=== PATIENT | female | born 1985 | race Caucasian/White ===

== ENCOUNTER 2017-03-31 17:00 | Inpatient (IN) | payer MEDICAID ==
[~2017-03-31] VITALS: Ht 162.6 cm; Wt 92.7 kg
[2017-03-31 18:14] VITALS: Ht 162.6 cm; Wt 92.7 kg
[2017-03-31 18:18] LABS: BASOPHILS % 0.4 % (0.0-2.0); EOSINOPHILS # 0.2 10^3/ul (0.0-0.5); EOSINOPHILS % 2.3 % (0.0-7.0); HEMATOCRIT 38.7 % (37.0-47.0); HEMOGLOBIN 13.2 g/dl (12.0-16.0); LYMPHOCYTES # 1.8 10^3/ul (0.8-2.9); LYMPHOCYTES % 21.4 % (15.0-51.0); MEAN CORPUSCULAR HEMOGLOBIN 31.7 pg (29.0-33.0); MEAN CORPUSCULAR HGB CONC 34.1 g/dl (32.0-37.0); MEAN PLATELET VOLUME 10.4 fl (7.4-10.4); MONOCYTE # 0.9 10^3/ul (0.3-0.9); MONOCYTES % 10.4 % (0.0-11.0); NEUTROPHILS % 64.2 % (39.0-77.0); PLATELET COUNT 342 10^3/UL (140-415); RED BLOOD COUNT 4.16 10^6/ul (4.20-5.40); RED CELL DISTRIBUTION WIDTH 13.4 % (11.5-14.5); WHITE BLOOD COUNT 8.4 10^3/ul (4.8-10.8)
[2017-03-31] MEDS: LACTATED RINGER'S 1,000 ML IV SCH (18:24)
[2017-03-31] MEDS ORDERED: METHYLERGONOVINE 0.2 MG INJ IM PRN (18:30)
[2017-03-31] MEDS ORDERED: MISOPROSTOL 200 MCG TAB PR PRN (18:30)
[2017-03-31] MEDS ORDERED: IBUPROFEN 600 MG TAB PO PRN (18:30)
[2017-03-31] MEDS ORDERED: LACTATED RINGER'S 1,000 ML IV PRN (18:30)
[2017-03-31] MEDS ORDERED: CARBOPROST 250 MCG INJ IM PRN (18:30)
[2017-03-31] MEDS ORDERED: OXYTOCIN 30 UNITS/LR 500 ML IV SCH ×2 (18:30)
[2017-03-31] MEDS ORDERED: MINERAL OIL LIGHT 10 ML VIAL TOP ONE (18:30)
[2017-03-31] MEDS ORDERED: OXYTOCIN 30 UNITS/LR 500 ML IV PRN (18:30)
[2017-03-31] MEDS ORDERED: LIDOCAINE 1% (MPF) 30 ML INJ INJ PRN (18:30)
[2017-03-31] MEDS ORDERED: BUTORPHANOL 2 MG INJ IV PRN (18:30)
[2017-03-31 18:42] LABS: INR 0.89; PARTIAL THROMBOPLASTIN TIME 25.5 Sec (25.0-35.0); PT RATIO 0.9
[2017-03-31 19:19] VITALS: BP 112/67; PULSE 68; RESP 18
[2017-04-01] MEDS ORDERED: MINERAL OIL LIGHT 10 ML VIAL TOP ONE
[2017-04-01] MEDS: LACTATED RINGER'S 1,000 ML IV SCH ×3 (00:20→07:20)
[2017-04-01] MEDS ORDERED: OXYTOCIN 30 UNITS/LR 500 ML IV SCH (03:00)
[2017-04-01] MEDS ORDERED: FENTAnyl 2MCG/ML-ROPIV 0.2% 100 ML ONE (08:57)
[2017-04-01] MEDS ORDERED: NALOXONE (0.4 MG/ML) INJ IV PRN (10:00)
[2017-04-01] MEDS ORDERED: FENTAnyl 2MCG/ML-ROPIV 0.2% 100 ML BAG EPI SCH (10:00)
[2017-04-01] MEDS ORDERED: ONDANSETRON 4 MG INJ IV PRN (10:00)
[2017-04-01] MEDS ORDERED: DIPHENHYDRAMINE 50 MG INJ IV PRN (10:00)
--- NOTE | 2017-04-01 14:23 | HP ---
Date/Time of Note Date/Time of Note DATE: 04/01/17 TIME: 14:22 OB - History Hx of Present Free Text/Dictation admitted for induction due to post dates Care: Good Care Ultrasounds: Normal mid trimester US Obstetrical Complications: None Medical Complications: None Past Family/Social History * Past Medical, Surgical, Family and Obstetric Histories reviewed from chart. OB Admission Exam Vital Signs Vital Signs Vital Signs Date Time Temp Pulse Resp B/P Pulse Ox O2 Delivery O2 Flow Rate FiO2 03/31/17 19:19 98.1 68 18 112/67 Room Air Physical Exam HEENT: WNL Heart: Rhythm Normal Lungs: Clear, Equal Abdomen: WNL Extremities: Normal Reflexes: Normal Cervical Dilatation: 10cm Effacement: 100% Station: +3 Membranes: Ruptured Amniotic Fluid: Clear Heart Rate: 130's Accelerations: Accelerations Present Decelerations: No Decelerations Varibility: Moderate Last 72 hours Lab Results CBC & BMP 03/31/17 18:00 OB Assessment/Plan Reason for admission: induction of labor Plan: Induction KVNG FULLER MD Apr 01, 2017 14:23
--- NOTE | 2017-04-01 14:24 | LDN ---
Date/Time of Note Date/Time of Note DATE: 04/01/17 TIME: 14:23 Delivery Summary term preg NSD Placenta Delivered: Spontaneously Meconium: none Anesthesia type: Epidural Estimated blood loss: 350 Sponge & Needle done & correct: Yes All needle counts correct: Yes Any foreign bodies felt in the: No Problems: KVNG FULLER MD Apr 01, 2017 14:24
[2017-04-01 15:00] VITALS: BP 116/61; PULSE 62; RESP 18
[2017-04-01] MEDS ORDERED: LACTATED RINGER'S 1,000 ML IV* SCH (15:01)
[2017-04-01] MEDS: WITCH HAZEL/GLYCERIN PAD PR PRN (15:28)
[2017-04-01] MEDS: BENZOCAINE 20% 56 ML SPRAY TOP PRN (15:28)
[2017-04-01] MEDS: LANOLIN 7 GM TUBE TOP PRN (15:28)
[2017-04-01] MEDS: HYDROCODONE/APAP (5/325) TAB PO PRN (15:29)
[2017-04-01 15:30] VITALS: BP 112/68; PULSE 65; RESP 18
[2017-04-01] MEDS ORDERED: METHYLERGONOVINE 0.2 MG INJ IM PRN (15:30)
[2017-04-01] MEDS ORDERED: ZOLPIDEM 5 MG TAB PO PRN (15:30)
[2017-04-01] MEDS ORDERED: MISOPROSTOL 200 MCG TAB PR PRN (15:30)
[2017-04-01] MEDS ORDERED: MAGNESIUM HYDROXIDE 30ML CUP PO PRN (15:30)
[2017-04-01] MEDS ORDERED: OXYTOCIN 30 UNITS/LR 500 ML IV PRN (15:30)
[2017-04-01] MEDS ORDERED: CARBOPROST 250 MCG INJ IM PRN (15:30)
[2017-04-01] MEDS ORDERED: ACETAMINOPHEN 325 MG TAB PO PRN (15:30)
[2017-04-01] MEDS ORDERED: DIPHENHYDRAMINE 25 MG CAP PO PRN (15:30)
[2017-04-01] MEDS: IBUPROFEN 800 MG TAB PO SCH ×2 (17:52→23:05)
[2017-04-01] MEDS: OXYTOCIN 30 UNITS/LR 500 ML IV SCH (17:54)
[2017-04-01 19:30] VITALS: BP 106/65; PULSE 86; RESP 20
[2017-04-02 04:00] VITALS: BP 102/59; PULSE 78; RESP 18
[2017-04-02] MEDS: IBUPROFEN 800 MG TAB PO SCH ×4 (05:25→23:25)
[2017-04-02] MEDS: OXYTOCIN 30 UNITS/LR 500 ML IV SCH (07:46)
[2017-04-02 08:00] VITALS: BP 110/58; PULSE 80; RESP 18
[2017-04-02 09:56] LABS: BASOPHILS % 0.5 % (0.0-2.0); EOSINOPHILS # 0.3 10^3/ul (0.0-0.5); EOSINOPHILS % 3.1 % (0.0-7.0); HEMATOCRIT 40.4 % (37.0-47.0); HEMOGLOBIN 13.3 g/dl (12.0-16.0); LYMPHOCYTES # 2.4 10^3/ul (0.8-2.9); LYMPHOCYTES % 28.2 % (15.0-51.0); MEAN CORPUSCULAR HEMOGLOBIN 31.1 pg (29.0-33.0); MEAN CORPUSCULAR HGB CONC 32.9 g/dl (32.0-37.0); MEAN CORPUSCULAR VOLUME 94.4 fl (82.0-101.0); MEAN PLATELET VOLUME 10.2 fl (7.4-10.4); MONOCYTE # 0.8 10^3/ul (0.3-0.9); PLATELET COUNT 307 10^3/UL (140-415); RED BLOOD COUNT 4.28 10^6/ul (4.20-5.40); RED CELL DISTRIBUTION WIDTH 13.6 % (11.5-14.5); WHITE BLOOD COUNT 8.7 10^3/ul (4.8-10.8)
[2017-04-02] MEDS: HYDROCODONE/APAP (5/325) TAB PO PRN (10:59)
[2017-04-02 12:10] VITALS: BP 115/56; PULSE 82; RESP 18
[2017-04-02 16:00] VITALS: BP 102/72; PULSE 81; RESP 18
[2017-04-02 20:15] VITALS: BP 116/76; PULSE 86; RESP 17
[2017-04-02] MEDS: SENNA/DOCUSATE NA (8.6MG/50MG) TAB PO PRN (21:14)
[2017-04-02] MEDS: LANOLIN 7 GM TUBE TOP PRN (21:15)
--- NOTE | 2017-04-02 22:25 | PN ---
Date/Time of Note Date/Time of Note DATE: 04/02/17 TIME: 22:20 OB Subjective Subjective Subjective Vaginal bleeding in the amount of menses. Denies any depressive symptoms. Reports have pelvic pain with walking. OB Objective Objective Objective GA: A&O, NAD x 4. Beast: No evidence of mastitis or fissure Abdomen: soft, non tender, no fundal tenderness. Fundus palpable at the level of umbilicus Extremities: No calf tenderness, no click, no edema. Hematology - 72 Hrs Test 03/31/17 18:00 04/02/17 09:30 White Blood Count 8.410^3/ul (4.8-10.8) 8.710^3/ul (4.8-10.8) Red Blood Count 4.1610^6/ul (4.20-5.40) L 4.2810^6/ul (4.20-5.40) Hemoglobin 13.2g/dl (12.0-16.0) 13.3g/dl (12.0-16.0) Hematocrit 38.7% (37.0-47.0) 40.4% (37.0-47.0) Mean Corpuscular Volume 93.0fl (82.0-101.0) 94.4fl (82.0-101.0) Mean Corpuscular Hemoglobin 31.7pg (29.0-33.0) 31.1pg (29.0-33.0) Mean Corpuscular Hemoglobin Concent 34.1g/dl (32.0-37.0) 32.9g/dl (32.0-37.0) Red Cell Distribution Width 13.4% (11.5-14.5) 13.6% (11.5-14.5) Platelet Count 50245^3/UL (140-415) 30893^3/UL (140-415) Mean Platelet Volume 10.4fl (7.4-10.4) 10.2fl (7.4-10.4) Neutrophils % 64.2% (39.0-77.0) 58.0% (39.0-77.0) Lymphocytes % 21.4% (15.0-51.0) 28.2% (15.0-51.0) Monocytes % 10.4% (0.0-11.0) 9.0% (0.0-11.0) Eosinophils % 2.3% (0.0-7.0) 3.1% (0.0-7.0) Basophils % 0.4% (0.0-2.0) 0.5% (0.0-2.0) Nucleated Red Blood Cells % 0.0/100WBC (0.0-0.0) 0.0/100WBC (0.0-0.0) Neutrophils # (Manual) 5.410^3/ul (1.7-7.5) 5.010^3/ul (1.7-7.5) Lymphocytes # 1.810^3/ul (0.8-2.9) 2.410^3/ul (0.8-2.9) Monocytes # 0.910^3/ul (0.3-0.9) 0.810^3/ul (0.3-0.9) Eosinophils # 0.210^3/ul (0.0-0.5) 0.310^3/ul (0.0-0.5) Basophils # 0.010^3/ul (0.0-0.1) 0.010^3/ul (0.0-0.1) Nucleated Red Blood Cells # 0.010^3/ul (0.0-0.0) 0.010^3/ul (0.0-0.0) OB Assessment/Plan Other Assessment: PPD #1 S/p Doing well Routine care. Anticipate DC home tomorrow STANLEY LEMUS MD Apr 02, 2017 22:25
[2017-04-02] MEDS: WITCH HAZEL/GLYCERIN PAD PR PRN (23:25)
[2017-04-02] MEDS: BENZOCAINE 20% 56 ML SPRAY TOP PRN (23:26)
[2017-04-03] MEDS: HYDROCODONE/APAP (5/325) TAB PO PRN ×2 (03:41→09:12)
[2017-04-03 04:00] VITALS: BP 97/54; PULSE 76; RESP 18
[2017-04-03] MEDS: IBUPROFEN 800 MG TAB PO SCH ×2 (05:43→12:00)
[2017-04-03 08:30] VITALS: BP 107/66; PULSE 86
[2017-04-03] MEDS ORDERED: MEASLES,MUMPS,RUBELLA VACCINE INJ SC* ONE (09:00)
[2017-04-03] MEDS ORDERED: VARICELLA VACCINE LIVE/PF 1,350 UNIT/0.5 ML ML SC* ONE (09:00)
[2017-04-03] MEDS ORDERED: DIPHTH/TET/ACEL PERTUSS (ADULT) 0.5 ML VIAL IM* ONE (09:00)
[2017-04-03] MEDS: SENNA/DOCUSATE NA (8.6MG/50MG) TAB PO PRN (09:11)
[2017-04-03] MEDS: BENZOCAINE 20% 56 ML SPRAY TOP PRN (09:17)
[2017-04-03] MEDS: WITCH HAZEL/GLYCERIN PAD PR PRN (09:18)
--- NOTE | 2017-04-03 12:55 | DS ---
Date/Time of Note Date/Time of Note DATE: 04/03/17 TIME: 12:55 Discharge Summary Admission/Discharge Info Admit Date/Time Mar 31, 2017 at 17:28 Discharge Date/Time Discharge Diagnosis term preg Patient Condition: Stable Hospital Course unremarkable Home Meds No Active Prescriptions or Reported Meds Primary Care Provider Care Physician No Primary KVNG FULLER MD Apr 03, 2017 12:55
== END 2017-04-03 16:18 | disposition home or self-care (01) | DRG 775 ==
LOC: L-D 17:28 → PP1 04-01 15:00
PROVIDERS: ADMIT Obstetrics & Gynecology; ATTEND Obstetrics & Gynecology
PROC: 10E0XZZ Delivery of Products of Conception, External Approach (ICD-10-PCS; principal; 2017-04-01)
PROC: 3E033VJ Introduction of Other Hormone into Peripheral Vein, Percutaneous Approach (ICD-10-PCS; 2017-04-01)
DX: O48.0 Post-term pregnancy (principal); Z37.0 Single live birth; Z3A.40 40 weeks gestation of pregnancy
CPT/HCPCS: 62319; 85025; 85610; 85730; 86592; 86900; 86901; 87340; 90715; 90716; J2210; J2590; J3010; J7120